=== PATIENT | male | born 1935 | race Caucasian/White ===

== ENCOUNTER 2019-12-11 18:36 | Inpatient (IN) | payer MEDICARE, BC ==
[~2019-12-11] VITALS: Ht 172.7 cm; Wt 66.0 kg
--- NOTE | 2019-12-11 19:30 | NUR ---
PATIENT IS BROUGHT INTO ER WITH ALTERED MENTAL STATUS TO BED 11. PATIENT IS UNABLE TO VERIFY THE CURRENT PRESIDENT NOR THE CURRENT DATE. PATIENT STATES HE IS FROM HOME AND DOES NOT KNOW HOW HE ARRIVED TO THE ER. PATIENT DENIES ANY PAIN. UNABLE TO PROVIDE ANY MEDICAL HISTORY. NO SIGNS OF WOUNDS NOTED. AAOX2. BREATHING EVENLY AND UNLABORED ON ROOM AIR. CONNECTED TO MONITOR.
[2019-12-11 19:32] LABS: BASOPHILS % (AUTO) 0.7 % (0.0-2.0); HEMATOCRIT 40 % (39-51); LYMPHOCYTES # (AUTO) 1.1 /CMM (0.8-4.8); LYMPHOCYTES % (AUTO) 17.7 % (20.0-44.0); MEAN CORPUSCULAR HGB CONC 33 g/dl (31.0-36.0); MEAN CORPUSCULAR VOLUME 95 fL (80-96); MONOCYTES # (AUTO) 0.4 /CMM (0.1-1.30); MONOCYTES % (AUTO) 6.6 % (2.0-12.0); NEUTROPHILS # (AUTO) 4.8 /CMM (1.8-8.9); PLATELET COUNT (AUTO) 190 /CMM (150-450); RED BLOOD CELL COUNT(AUTO) 4.17 MIL/uL (4.5-6.0); WHITE BLOOD COUNT (AUTO) 6.4 K/uL (4.3-11.0)
--- NOTE | 2019-12-11 19:34 | NUR ---
BLOOD DRAWN AND SENT TO LAB.
--- NOTE | 2019-12-11 19:35 | NUR ---
PATIENT SENT TO CT.
[2019-12-11 19:41] LABS: CALCIUM, SERUM 9.2 mg/dL (8.5-10.1); CARBON DIOXIDE 30 mmol/L (21-32); CHLORIDE 101 mmol/L (98-107); CREATININE 1.3 mg/dL (0.6-1.3); GLUCOSE 165 mg/dL (74-106); POTASSIUM 3.7 mmol/L (3.5-5.1); SODIUM SERUM 138 mmol/L (136-145); UREA NITROGEN, BLOOD 28 mg/dL (7-18)
[2019-12-11 19:47] LABS: ALANINE AMINOTRANSFERASE 24 U/L (12-78); ALBUMIN 3.5 g/dL (3.4-5.0); ALKALINE PHOSPHATASE 115 U/L (46-116); ASPARTATE AMINOTRANSFERASE 25 U/L (15-37); BILIRUBIN,DIRECT 0.1 mg/dL (0.0-0.2); BILIRUBIN,TOTAL 0.4 mg/dL (0.2-1.0); TOTAL PROTEIN, SERUM 8.3 g/dL (6.4-8.2)
[2019-12-11 19:48] LABS: ACETAMINOPHEN 0 ug/ml (10-30); SALICYLATE 2.3 mg/dL (2.8-20.0)
[2019-12-11 20:17] LABS: SERUM AMMONIA 0 umol/L (11-32)
[2019-12-11 21:38] LABS: THYROID STIMULATING HORMONE 3.364 uIU/mL (0.358-3.74)
--- NOTE | 2019-12-11 22:00 | NUR ---
REPORT GIVEN TO SABRINA PACKER FOR KAREN.
[2019-12-11] MEDS ORDERED: LIDOCAINE 2% JEL UROJET 10 ML MM ONE ×2 (22:02→23:00)
--- NOTE | 2019-12-11 22:08 | NUR ---
SHELBY BY DR. REYNOSO TO GIVE UROJET TO PATIENT FOR URINARY STRAIGHT CATHETER.
--- NOTE | 2019-12-11 22:11 | NUR ---
URINE COLLECTED AND SENT TO LAB.
[2019-12-11 22:16] LABS: APPEARANCE,URINE Cloudy (CLEAR); BILIRUBIN,URINE MODERATE (NEGATIVE); BLOOD, URINE Large Ery/uL (NEGATIVE); COLOR,URINE Dark (YELLOW); KETONES,URINE Trace (NEGATIVE); LEUKOCYTE ESTERASE ,URINE Negative (NEGATIVE); NITRITE, URINE Negative (NEGATIVE); PH,URINE 5.5 (5.0-8.0); PROTEIN,URINE >=300 mg/dl (NEGATIVE); UGLUCOSE Negative (NEGATIVE)
[2019-12-11 22:44] LABS: BACTERIA,URINE None seen /HPF (None Seen); MUCUS,URINE Few /LPF (None Seen); RBC,URINE 21-50 /HPF (0-2); SQUAMOUS EPITHELIAL CELL,UR Few /HPF (None Seen); URINE AMORPHOUS URATE Few /HPF (None Seen); WBC,URINE 0-2 /HPF (0-3)
[2019-12-11 22:45] VITALS: BP 173/103
[2019-12-11] MEDS ORDERED: IV NS 0.9% 1,000 ML IV PRN (23:00)
[2019-12-11] MEDS ORDERED: ACETAMINOPHEN 325 MG TABLET PO PRN (23:00)
[2019-12-11] MEDS ORDERED: Z GUARD REMEDY 2 OZ OINT TP PRN (23:00)
[2019-12-11] MEDS ORDERED: ONDANSETRON HCL/PF 4 MG/2 ML VIAL IVP PRN (23:00)
--- NOTE | 2019-12-11 23:24 | NUR ---
ADMISSION NOTE. PT FROM HOME [facility] FOR AMS SINCE YESTERDAY PER FAMILY. attempted to call home number LISTED ON FACE SHET but NUMBER IS DISCONNECTED. patient is a poor historian. and answers questions inconsitantly. patient admitted from er tele for ams. pt only recorded history is htn and cva. patient skin intact. patient has goodmovement of upper and lower extremities with no weakness identified. facial symmetry is intact. patient speech is clear. will complete admission assessment with previous records available.
[2019-12-11] MEDS: IV NS 0.9% 1,000 ML IV PRN (23:54)
[2019-12-12 00:01] VITALS: BP 135/64
[2019-12-12 04:00] VITALS: BP 161/96
[2019-12-12] MEDS ORDERED: LOSA50TA39 PO (07:55)
[2019-12-12] MEDS ORDERED: CLOP75TA15 PO (07:55)
[2019-12-12] MEDS ORDERED: OMEP20CA15 PO (07:55)
[2019-12-12] MEDS ORDERED: MEMA5TAB42 PO (07:55)
[2019-12-12] MEDS ORDERED: ATOR10TA PO (07:55)
[2019-12-12] MEDS ORDERED: METO-357 PO (07:55)
[2019-12-12] MEDS ORDERED: SULF500T8 PO (07:55)
[2019-12-12] MEDS ORDERED: OXYB10TA30 PO (07:55)
[2019-12-12] MEDS ORDERED: NIFE-35 PO (07:55)
[2019-12-12] MEDS ORDERED: DONE10TA44 PO (07:55)
[2019-12-12] MEDS ORDERED: CHOL200074 PO (07:56)
[2019-12-12] MEDS ORDERED: ASPI-1169 PO (07:56)
[2019-12-12 08:00] VITALS: BP 141/87
--- NOTE | 2019-12-12 08:00 | NUR ---
received pt. this am.alert and oriented x1.skin warm and dry.vs stable.constant reorientation as pt. confused.
--- NOTE | 2019-12-12 08:00 | NUR ---
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 INFO OBTAINED FROM SHAMIR GONZALEZ () [phone]. PRIMARY NURSE AWARE.
[2019-12-12 09:07] LABS: BASOPHILS # (AUTO) 0.1 /CMM (0.0-0.2); BASOPHILS % (AUTO) 0.8 % (0.0-2.0); HEMATOCRIT 39 % (39-51); HEMOGLOBIN 12.9 g/dL (13.5-17.5); LYMPHOCYTES # (AUTO) 2.3 /CMM (0.8-4.8); LYMPHOCYTES % (AUTO) 30.5 % (20.0-44.0); MEAN CORPUSCULAR HGB CONC 33 g/dl (31.0-36.0); MEAN CORPUSCULAR VOLUME 95 fL (80-96); MONOCYTES # (AUTO) 0.8 /CMM (0.1-1.30); MONOCYTES % (AUTO) 9.9 % (2.0-12.0); NEUTROPHILS # (AUTO) 4.5 /CMM (1.8-8.9); NEUTROPHILS % (AUTO) 58.8 % (43.0-81.0); PLATELET COUNT (AUTO) 149 /CMM (150-450); RED BLOOD CELL COUNT(AUTO) 4.12 MIL/uL (4.5-6.0); WHITE BLOOD COUNT (AUTO) 7.6 K/uL (4.3-11.0)
[2019-12-12 09:20] LABS: ALBUMIN 3.4 g/dL (3.4-5.0); BILIRUBIN,TOTAL 0.4 mg/dL (0.2-1.0); CREATININE 1.2 mg/dL (0.6-1.3); MAGNESIUM 2.2 mg/dL (1.8-2.4); POTASSIUM 3.4 mmol/L (3.5-5.1); TOTAL PROTEIN, SERUM 7.8 g/dL (6.4-8.2)
[2019-12-12] MEDS: ENOXAPARIN SODIUM 40 MG/0.4 ML DISP.SYRIN SQ SCH (09:23)
[2019-12-12] MEDS: PANTOPRAZOLE 40 MG TABLET.DR PO SCH (09:24)
[2019-12-12 09:25] LABS: THYROID STIMULATING HORMONE 3.116 uIU/mL (0.358-3.74)
--- NOTE | 2019-12-12 11:30 | NUR ---
iv disconnected freq. as pt. keeps getting oob.
[2019-12-12 16:00] VITALS: BP 121/75
--- NOTE | 2019-12-12 16:00 | NUR ---
side rails up.reoriented but getting up continually.
[2019-12-12 20:00] VITALS: BP 144/82
--- NOTE | 2019-12-12 20:30 | NUR ---
PT FALL UNWITNESSED. PATIENT FOUND IN BATHROOM ON THE GROUND WITH PANTS DOWN. PT ASSESSED, DENIES PAIN. DENIES PAIN UPON ROTATION OF ARM/ SHOULDER AND FLEXION EXTENSION OF ELBOWS. LEGS ROTATED INTERIOR AND LATERALLY AND PATIENT DENIES PAIN. PATIENT ASSISTED TO HIS FEET AND ASSISTED BACK TO BED. PATIENT HAS NO VISIBLE WOUNDS AT THIS TIME. AND NO APPARENT INJURY. WILL CONT TO MONITOR. BED DOWN LOCKED SR X3 BED ALARM ACTIVE. PATIENT REORIENTED TO ROOM.
--- NOTE | 2019-12-12 21:12 | NUR ---
kathryn lassiter dnp notified of patient fall no new orders.
--- NOTE | 2019-12-13 07:00 | NUR ---
CALLED SHAMIR AND INFORMED HER OF PATIENT HAVING A SUSPECTED FALL LAST NIGHT. INFORMED PATIENT HAD NO INJURIES THAT ARE VISIBLE. PATIENT IN DENIAL OF PAIN. VERBALIZED UNDERSTANDING. UPDATED ON PATIENTS CONDITION. INFORMED HE HAS BEEN HAVING MORE ENERGY BUT APPETITE HAS BEEN POOR AND HE HAS BEEN REFUSING TO EAT SOME MEALS.
--- NOTE | 2019-12-13 07:30 | NUR ---
RN NOTES RECEIVED PATIENT RESTING IN BED COMFORTABLY IN MODERATE HIGH BACK RESTS. A/OX1. S/P FALL FROM LAST NIGHT. ON RA, TOLERATING WELL, NO C/O OF SOB OR PAIN AT THIS TIME. IV ON LEFT WRIST #22 RUNNING WITH NS @75 ML/HR. REMAINS INTACT & PATENT. SAFETY MEASURES IN PLACE. BED LOCKED, ALARM ON, SIDE RAILS X2, CALL LIGHT WITHIN REACH. WILL CONTINUE TO MONITOR.
[2019-12-13 07:43] LABS: BASOPHILS # (AUTO) 0.1 /CMM (0.0-0.2); BASOPHILS % (AUTO) 0.8 % (0.0-2.0); HEMATOCRIT 37 % (39-51); HEMOGLOBIN 11.7 g/dL (13.5-17.5); LYMPHOCYTES # (AUTO) 1.9 /CMM (0.8-4.8); LYMPHOCYTES % (AUTO) 29.5 % (20.0-44.0); MEAN CORPUSCULAR HGB CONC 32 g/dl (31.0-36.0); MEAN CORPUSCULAR VOLUME 95 fL (80-96); MONOCYTES # (AUTO) 0.8 /CMM (0.1-1.30); MONOCYTES % (AUTO) 12.2 % (2.0-12.0); NEUTROPHILS # (AUTO) 3.8 /CMM (1.8-8.9); NEUTROPHILS % (AUTO) 57.5 % (43.0-81.0); PLATELET COUNT (AUTO) 143 /CMM (150-450); RED BLOOD CELL COUNT(AUTO) 3.85 MIL/uL (4.5-6.0); WHITE BLOOD COUNT (AUTO) 6.5 K/uL (4.3-11.0)
[2019-12-13 08:00] VITALS: BP 125/84
[2019-12-13 08:07] LABS: CALCIUM, SERUM 8.5 mg/dL (8.5-10.1); CREATININE 1.1 mg/dL (0.6-1.3); PHOSPHORUS 2.5 mg/dL (2.5-4.9)
[2019-12-13] MEDS: PANTOPRAZOLE 40 MG TABLET.DR PO SCH (08:10)
[2019-12-13] MEDS: ENOXAPARIN SODIUM 40 MG/0.4 ML DISP.SYRIN SQ SCH (08:10)
--- NOTE | 2019-12-13 08:45 | NUR ---
MS RN NOTES Received report. Patient resting in bed. A/O x 1. VS stable with no acute distress. Breathing even and unlabored on room air with no respiratory distress. Denies pain. No signs and symptoms of pain. 22g PIV on Left Wrist clean, intact, patent and flushing well with NS infusing at 75ml/hr. Safety precautions in place. Bed locked and set to lowest position with side rails x 2 up. All needs rendered at this time. Call light within reach. Will continue to monitor.
[2019-12-13] MEDS: POTASSIUM CHLORIDE 20 MEQ POWDER PACKET PO SCH ×3 (12:05→14:13)
[2019-12-13 16:00] VITALS: BP 142/96
--- NOTE | 2019-12-13 19:05 | NUR ---
MS RN CLOSING NOTES Patient resting in bed. A/O x 1-2. VS stable with no acute distress. Breathing even and unlabored on room air with no respiratory distress. Denies pain. No signs and symptoms of pain. 22g PIV on Left Wrist clean, intact, patent and flushing well with NS infusing at 75ml/hr. Safety precautions in place. Bed locked and set to lowest position with side rails x 2 up. All needs rendered at this time. Call light within reach. Will endorse plan of care to oncoming shift.
[2019-12-13] MEDS: IV NS 0.9% 1,000 ML IV PRN (19:11)
[2019-12-13 20:04] VITALS: BP 160/87
--- NOTE | 2019-12-14 07:05 | NUR ---
MS RN CLOSING NOTES Patient resting in bed. pt in no acute distress. Breathing even and unlabored on room air with no respiratory distress. Denies pain. No signs and symptoms of pain. 22g PIV on Left Wrist clean, intact, patent and flushing well with NS infusing at 75ml/hr. Safety precautions in place. patient was assisted to the commode prn last night. Call light within reach. Will endorse plan of care to oncoming shift.
[2019-12-14 07:36] LABS: BASOPHILS % (AUTO) 0.7 % (0.0-2.0); EOSINOPHILS % (AUTO) 0.2 % (0.0-6.0); HEMATOCRIT 37 % (39-51); HEMOGLOBIN 11.7 g/dL (13.5-17.5); LYMPHOCYTES # (AUTO) 1.3 /CMM (0.8-4.8); LYMPHOCYTES % (AUTO) 27.7 % (20.0-44.0); MEAN CORPUSCULAR HGB CONC 32 g/dl (31.0-36.0); MEAN CORPUSCULAR VOLUME 95 fL (80-96); MONOCYTES # (AUTO) 0.8 /CMM (0.1-1.30); MONOCYTES % (AUTO) 16.6 % (2.0-12.0); NEUTROPHILS # (AUTO) 2.6 /CMM (1.8-8.9); NEUTROPHILS % (AUTO) 54.8 % (43.0-81.0); PLATELET COUNT (AUTO) 146 /CMM (150-450); RED BLOOD CELL COUNT(AUTO) 3.85 MIL/uL (4.5-6.0); WHITE BLOOD COUNT (AUTO) 4.8 K/uL (4.3-11.0)
[2019-12-14 08:02] LABS: CALCIUM, SERUM 8.8 mg/dL (8.5-10.1); MAGNESIUM 1.9 mg/dL (1.8-2.4); PHOSPHORUS 1.9 mg/dL (2.5-4.9); POTASSIUM 3.3 mmol/L (3.5-5.1)
[2019-12-14] MEDS: ENOXAPARIN SODIUM 40 MG/0.4 ML DISP.SYRIN SQ SCH (08:58)
[2019-12-14] MEDS: PANTOPRAZOLE 40 MG TABLET.DR PO SCH (08:58)
[2019-12-14] MEDS ORDERED: NEUTRA PHOS 1 POWD.PACKET PO ONE (09:00)
[2019-12-14] MEDS ORDERED: POTASSIUM CHLORIDE 20 MEQ POWDER PACKET PO SCH (11:00)
--- NOTE | 2019-12-14 12:26 | NUR ---
DISCHARGE TO HOME. IDENTIFICATION BAND REMOVED. PATIENT INTRAVENOUS SITE REMOVAL. PATIENT FAMILY ASKED FOR SHOES. NO SHOES PRESENT IN PATIENT ROOM OR BELONGINGS BAG. PATIENT ABLE TO AMBULATE WITH ASSIST TO PRIVATE VEHICLE WITH SON AND SPOUSE FOR TRANSPORTATION HOME.
== END 2019-12-14 11:00 | disposition home or self-care (01) | DRG 640 ==
LOC: ER 18:39 → TELE 21:22 → MED 12-12 13:40
PROVIDERS: ADMIT Nurse Practitioner Acute Care; ATTEND Student in an Organized Health Care Education/Training Program
DX: E86.0 Dehydration (principal); G93.41 Metabolic encephalopathy; R50.9 Fever, unspecified; R31.9 Hematuria, unspecified; I10 Essential (primary) hypertension; E87.6 Hypokalemia; E83.39 Other disorders of phosphorus metabolism; D64.9 Anemia, unspecified; D69.6 Thrombocytopenia, unspecified; Z86.73 Personal history of transient ischemic attack (TIA), and cerebral infarction without residual deficits; I70.90 Unspecified atherosclerosis
CPT/HCPCS: 36415; 70450-TC; 71045-TC; 80048-TC; 80053-TC; 80061-TC; 80076-TC; 81000-TC; 82140-TC; 82728-TC; 83540-TC; 83615-TC; 83735-TC; 84100-TC; 84443-TC; 84484-TC; 85025-TC; 85730-TC; 87081-TC; 87086-TC; 93307-TC; 97110-TC; 97116-TC; 97530-TC; 97535-TC; G0378; G0480; J1650; J3490; J7030